=== PATIENT | male | born 1955 | race African-American/Black ===

== ENCOUNTER 2020-05-11 06:56 | Inpatient (IN) | payer MEDICARE, MEDICAID ==
[~2020-05-11] VITALS: Ht 205.7 cm; Wt 81.8 kg
[2020-05-11] MEDS ORDERED: SODIUM CHLORIDE 0.9% 1,000 ML IV ONE (07:01)
[2020-05-11 07:21] LABS: BASOPHILS % 0.6 % (0.0-2.0); EOSINOPHILS % 0.9 % (0.0-5.0); HEMATOCRIT. 42.3 % (42.0-52.0); HEMOGLOBIN. 14.6 g/dL (14.0-18.0); MEAN CORPUSCULAR HEMOGLOBIN 31.8 pg (28.0-32.0); MEAN CORPUSCULAR VOLUME 92.1 fL (80.0-94.0); MEAN PLATELET VOLUME 8.2 fl (7.4-10.4); MONOCYTES % 5.7 % (2.0-8.0); NEUTROPHILS % 83.8 % (40.0-76.0); PLATELET 356 x1000/uL (130-400); RED CELL DISTRIBUTION WIDTH 13.4 % (11.6-14.6)
[2020-05-11 07:26] LABS: CHLORIDE 110 mEq/L (98-107)
[2020-05-11 07:30] LABS: ETHANOL BLOOD < 10 mg/dL
[2020-05-11] MEDS ORDERED: SODIUM CHLORIDE 0.9% 1000ML BAG (SEPSIS BOLUS) IV ONE (07:30)
[2020-05-11 08:24] LABS: CLARITY URINE CLEAR (CLEAR); COLOR URINE DARK YELLOW (YELLOW); KETONES URINE 2+ (NEGATIVE); LEUKOCYTE ESTERASE URINE NEGATIVE (NEGATIVE); NITRITE URINE NEGATIVE (NEGATIVE); OCCULT BLOOD URINE NEGATIVE (NEGATIVE); PROTEIN URINE NEGATIVE (NEGATIVE); SPECIFIC GRAVITY URINE 1.033 (1.005-1.030)
[2020-05-11 08:35] LABS: *AMPHETAMINES SCREEN URINE NEGATIVE (NEGATIVE); *BARBITURATES SCREEN URINE NEGATIVE (NEGATIVE); *BENZODIAZEPINES SCREEN URINE NEGATIVE (NEGATIVE); *COCAINE SCREEN URINE PRESUMTIVE POSITIVE (NEGATIVE); METHADONE URINE SCREEN NEGATIVE (NEGATIVE); OPIATES URINE SCREEN NEGATIVE (NEGATIVE); PHENCYCLIDINE URINE SCREEN NEGATIVE (NEGATIVE)
[2020-05-11 08:36] LABS: CANNABINOID URINE SCREEN PRESUMTIVE POSITIVE (NEGATIVE)
[2020-05-11] MEDS ORDERED: LIDOCAINE 1%/EPI 1:100,000 10 ML VIAL IJ ONE (09:00)
[2020-05-11] MEDS ORDERED: TETANUS, DIPHTHERIA, PERTUSSIS VAC/PF 0.5ML (>7YR OLD) IM ONE (09:00)
[2020-05-11] MEDS ORDERED: LIDOCAINE HCL/EPINEPHRINE 1%-EPI 1:100,000 20 ML VIAL INFIL NR (09:45)
[2020-05-11] MEDS ORDERED: MAGNESIUM/ALUMINUM HYDROXIDE/SIMETHICONE 30ML UDC PO ONE (10:45)
[2020-05-11] MEDS ORDERED: ACETAMINOPHEN 325MG TABLET PO PRN (15:30)
[2020-05-11] MEDS ORDERED: ONDANSETRON HCL 4MG/2ML INJ IV PRN (15:30)
[2020-05-11 23:25] VITALS: BP 105/58
[2020-05-12] VITALS: BP 90/48
[2020-05-12 04:00] VITALS: BP 100/41
[2020-05-12 07:07] LABS: BASOPHILS % 0.6 % (0.0-2.0); HEMATOCRIT. 41.6 % (42.0-52.0); MEAN CORPUSCULAR HEMOGLOBIN 31.5 pg (28.0-32.0); MEAN CORPUSCULAR VOLUME 93.4 fL (80.0-94.0); MEAN PLATELET VOLUME 8.8 fl (7.4-10.4); MONOCYTES % 7.4 % (2.0-8.0); PLATELET 324 x1000/uL (130-400); RED BLOOD CELL COUNT 4.45 mill/uL (4.7-6.1); RED CELL DISTRIBUTION WIDTH 13.3 % (11.6-14.6)
[2020-05-12 07:11] LABS: CHLORIDE 107 mEq/L (98-107)
[2020-05-12 08:00] VITALS: BP 102/63
[2020-05-12 12:00] VITALS: BP 111/62
[2020-05-12 15:41] VITALS: BP 104/67
[2020-05-12 20:00] VITALS: BP 98/51
[2020-05-13] VITALS: BP 104/60
[2020-05-13 04:00] VITALS: BP 132/66
[2020-05-13 07:32] LABS: CHLORIDE 105 mEq/L (98-107)
[2020-05-13 07:35] LABS: BASOPHILS % 0.6 % (0.0-2.0); EOSINOPHILS % 1.5 % (0.0-5.0); HEMATOCRIT. 43.9 % (42.0-52.0); LYMPHOCYTES % 11.1 % (20.0-50.0); MEAN CORPUSCULAR HEMOGLOBIN 31.9 pg (28.0-32.0); MEAN CORPUSCULAR VOLUME 92.9 fL (80.0-94.0); MEAN PLATELET VOLUME 8.5 fl (7.4-10.4); MONOCYTES % 5.4 % (2.0-8.0); NEUTROPHILS % 81.4 % (40.0-76.0); PLATELET 329 x1000/uL (130-400); RED BLOOD CELL COUNT 4.72 mill/uL (4.7-6.1); RED CELL DISTRIBUTION WIDTH 13.4 % (11.6-14.6)
[2020-05-13 08:00] VITALS: BP 124/69
[2020-05-13 11:40] VITALS: BP 117/79
[2020-05-13 16:00] VITALS: BP 119/69
[2020-05-13 20:00] VITALS: BP 118/71
[2020-05-14] VITALS: BP 125/70
[2020-05-14 04:00] VITALS: BP 120/68
[2020-05-14 08:00] VITALS: BP 100/52
[2020-05-14 09:10] VITALS: BP 100/52
[2020-05-14 12:00] VITALS: BP 90/57
== END 2020-05-14 13:00 | disposition home or self-care (01) | DRG 74 ==
LOC: EDBD 06:56 → ER 07:37 → EDBEDREQTM 09:03 → EDBEDREQ 09:03 → ENRESERV 20:13 → 5WST 21:54
PROVIDERS: ADMIT Internal Medicine; ATTEND Internal Medicine
DX: G90.8 Other disorders of autonomic nervous system (principal); F17.210 Nicotine dependence, cigarettes, uncomplicated; D72.829 Elevated white blood cell count, unspecified; E87.8 Other disorders of electrolyte and fluid balance, not elsewhere classified; F10.10 Alcohol abuse, uncomplicated; F12.90 Cannabis use, unspecified, uncomplicated; F14.10 Cocaine abuse, uncomplicated; J44.9 Chronic obstructive pulmonary disease, unspecified; I27.20 Pulmonary hypertension, unspecified; I10 Essential (primary) hypertension; Z71.6 Tobacco abuse counseling
CPT/HCPCS: 36415; 71045; 80048; 80053; 80061; 80305; 80320; 81003; 82962; 83605; 83735; 83880; 84145; 84443; 84484; 85025; 90715; 93005; 93306; 93880; 97161; 99285; J3490; J7030; G0480

== ENCOUNTER 2020-06-14 20:23 | Emergency (ER) | payer MEDICARE, MEDICAID ==
[~2020-06-14] VITALS: Ht 165.1 cm; Wt 77.0 kg
[2020-06-14 20:48] VITALS: BP 137/75
== END 2020-06-14 20:59 | disposition home or self-care (01) ==
LOC: ER 20:32
DX: Z48.02 Encounter for removal of sutures (principal)
CPT/HCPCS: 99281

== ENCOUNTER 2022-02-07 15:09 | Emergency (ER) | payer OTHER, MEDICAID ==
[~2022-02-07] VITALS: Ht 165.1 cm; Wt 81.0 kg
[2022-02-07] MEDS ORDERED: IBUPROFEN 800MG TABLET PO ONE (16:15)
[2022-02-07] MEDS ORDERED: IBUP-2029 MT (17:16)
[2022-02-07 18:45] VITALS: BP 138/65
== END 2022-02-07 21:17 | disposition home or self-care (01) ==
LOC: ER 15:09
DX: S70.02XA Contusion of left hip, initial encounter (principal); S60.222A Contusion of left hand, initial encounter; Y08.89XA Assault by other specified means, initial encounter; Y93.89 Activity, other specified; Y92.89 Other specified places as the place of occurrence of the external cause; Y99.8 Other external cause status
CPT/HCPCS: 72192; 73130; 99284

== ENCOUNTER 2023-05-04 07:45 | Emergency (ER) | payer BC, MEDICAID ==
[~2023-05-04] VITALS: Ht 170.2 cm; Wt 85.0 kg
[~2023-05-04 07:45] MED LIST: IBUP-2029 MT
[2023-05-04] MEDS ORDERED: ACETAMINOPHEN WITH CODEINE 300/30MG TABLET PO ONE (08:00)
[2023-05-04] MEDS ORDERED: T3 PO (09:45)
[2023-05-04] MEDS ORDERED: IBUP-2028 PO (09:45)
[2023-05-04 09:57] VITALS: BP 101/63
== END 2023-05-04 10:02 | disposition home or self-care (01) ==
LOC: ER 07:45
DX: M79.631 Pain in right forearm (principal); M79.10 Myalgia, unspecified site
CPT/HCPCS: 73090; 73100; 99284

== ENCOUNTER 2023-06-07 23:28 | Emergency (ER) | payer BC, MEDICAID ==
[~2023-06-07] VITALS: Ht 175.3 cm; Wt 91.0 kg
[~2023-06-07 23:28] MED LIST changes: +IBUP-2028 PO; +T3 PO
[2023-06-07 23:32] VITALS: TEMP 98.2; O2SAT 99
[2023-06-08] MEDS ORDERED: LIDOCAINE HCL/PF 1% 10 MG/ML 5ML VIAL INFIL ONE (01:15)
[2023-06-08] MEDS ORDERED: BACITRACIN ZINC OINT UDPKT TOP ONE (01:15)
[2023-06-08] MEDS ORDERED: TETANUS, DIPHTHERIA, PERTUSSIS VAC/PF 0.5ML (>10YR OLD) IM ONE (01:15)
[2023-06-08] MEDS ORDERED: IBUP-2029 MT (02:32)
[2023-06-08] MEDS ORDERED: MORPHINE SULFATE 10 MG/ML CPJ IM ONE (03:00)
[2023-06-08] MEDS ORDERED: CEFTRIAXONE SODIUM 1 G/VIAL IM ONE (03:00)
[2023-06-08 03:20] VITALS: BP 138/74; PULSE 88; RESP 18
[2023-06-08] MEDS ORDERED: CLIN-194 MT (04:30)
[2023-06-08] MEDS ORDERED: T3 PO (04:33)
== END 2023-06-08 05:25 | disposition home or self-care (01) ==
LOC: ER 23:28
DX: S52.91XA Unspecified fracture of right forearm, initial encounter for closed fracture (principal); S01.01XA Laceration without foreign body of scalp, initial encounter; X58.XXXA Exposure to other specified factors, initial encounter; Y93.89 Activity, other specified; Y92.89 Other specified places as the place of occurrence of the external cause; Y99.8 Other external cause status
CPT/HCPCS: 99285; 12002; 12011; 70450; 71101; 73090; 90715; 90471; 96372; J0696; J3490; J2270